=== PATIENT | female | born 1950 | race African-American/Black ===

== ENCOUNTER 2017-09-26 12:24 | Outpatient (CLI) | payer MEDICARE, MEDICAID | END 2017-09-26 12:25 | disposition home or self-care (01) | LOC: BICMAMMO 12:24 | PROVIDERS: ATTEND Nurse Practitioner Family | DX: Z12.31 Encounter for screening mammogram for malignant neoplasm of breast (principal); Z80.3 Family history of malignant neoplasm of breast | CPT/HCPCS: 77063; 77067 ==

== ENCOUNTER 2017-10-16 09:23 | Day surgery (SDC) | payer MEDICARE, MEDICAID ==
[2017-10-15 12:11] VITALS: BMI 35.6
[2017-10-16] MEDS ORDERED: Albuterol Sulfate HFA (OR ONLY) ONE (13:32)
--- NOTE | 2017-10-16 13:55 | OP ---
DATE OF PROCEDURE: 10/16/2017 PROCEDURES PERFORMED: Esophagogastroduodenoscopy with biopsy, colonoscopy with polypectomy. INDICATIONS FOR PROCEDURE: Iron deficiency anemia, screening for malignant neoplasm of the colon. DESCRIPTION OF PROCEDURE: After the risks and benefits of the procedure were explained to the patien t including risks of bleeding, infection, perforation, reactions to anesthesia, aspiration and/or jose c n, informed consent was obtained. The patient was then taken to the endoscopy suite where deep sedat ion was administered via propofol and anesthesia support. Once adequate sedation was achieved, the s tandard gastroscope was introduced into the mouth and with intubation of the esophagus, stomach and t he proximal small intestine, findings are listed below. During the procedure, the patient exhibited an acute oxygen desaturation as well as gurgling sounds concerning for possible aspiration. Subseque ntly, the procedure was placed on hold with endotracheal intubation then performed to protect the pat ient's airway. Once the patient was intubated, there were no further oxygen desaturations and upper endoscopy was then completed to satisfaction. Once the upper endoscopy was completed, the bed was th en rotated 180 degrees with starting the colonoscopy at that point. After digital rectal examination , the standard colonoscope was introduced into the rectum and advanced to the cecum without difficult y. The quality of the prep was good with adequate views obtained. The patient tolerated the procedu re well with no immediate perioperative complications. EGD FINDINGS: ESOPHAGUS: Normal appearing mucosa was seen in the proximal, mid and distal esophagus. There was no evidence of erosions, ulcerations, mass lesions or active/recent bleeding. STOMACH: Normal appearing mucosa was seen in the gastric cardia, fundus, body, greater curvature, an trum and incisura. There was no evidence of erosions, ulcerations, mass lesions or active/recent ble eding. DUODENUM: Normal appearing mucosa was seen in the duodenal bulb; however, a 4 mm pedunculated polyp was seen in the proximal duodenum/duodenal sweep without any overlying ulceration or mucosal breakdow n. Multiple biopsies were taken of this polyp given concern in its proximity to the ampulla of Vater and injury to the ampulla itself. Normal appearing mucosa was then seen in the second portion of th e duodenum with random biopsies taken from both the duodenal bulb and second portion for evaluation o f celiac disease/iron deficiency anemia. IMPRESSION: 1. A 4 mm pedunculated duodenal polyp, status post biopsies. 2. Otherwise, normal upper endoscopy. 3. No etiology for iron deficiency anemia was seen during this examination. COLONOSCOPY FINDINGS: DIGITAL RECTAL EXAM: External hemorrhoids were noted on external examination. COLON FINDINGS: Normal appearing mucosa was seen at the ileocecal valve, appendiceal orifice and wit hin the cecum itself. Three polyps measuring 2-5 mm in size were seen in the ascending colon and rem chris with a combination of both jumbo biopsy forceps and hot snare polypectomy. All the polyps were completely removed and placed in a specimen jar for evaluation. A 4 mm polyp was also seen in the tr ansverse colon and completely removed with hot snare polypectomy. The polyp was retrieved and placed in a specimen jar for evaluation. Normal appearing mucosa was seen in the distal transverse and rachell cending colons. A 4-5 mm polyp was seen in the sigmoid colon and completely removed with snare caute ry polypectomy. The polyp was retrieved and placed in a specimen jar for evaluation. Lastly, a 4-5 mm semi-pedunculated polyp was seen in the distal rectum just proximal to the dentate line and comple tely removed with hot snare polypectomy. The polyp was retrieved and placed in specimen jar for eval uation. Small internal hemorrhoids were seen on rectal retroflexion. IMPRESSION: 1. Three polyps measuring 2-5 mm in size seen in the ascending colon and completely removed with eit her jumbo forceps or snare cautery polypectomy. 2. A 4 mm polyp seen in the transverse colon completely removed with snare cautery polypectomy. 3. A 4-5 mm sigmoid colon polyp, completely removed with snare cautery polypectomy. 4. A 4-5 mm semi-pedunculated polyp seen in the rectum, status post snare cautery polypectomy. 5. Both internal and external hemorrhoids. 6. No etiology for iron deficiency anemia was seen during this examination. RECOMMENDATIONS: 1. We will follow up on the biopsy results with repeat upper endoscopy and colonoscopy based on path ology results. 2. Would hold any anticoagulation for the next 48-72 hours. 3. We will order stat chest x-ray given concern for possible aspiration during the upper endoscopy p ortion of the exam today. 4. I would further evaluate this iron deficiency anemia with iron indices and possible hematology ev aluation given the concurrent diagnosis of HIV. Capsule endoscopy is not necessarily indicated at is time given the low likelihood of small bowel etiology of the iron deficiency anemia.
--- NOTE | 2017-10-16 15:04 | RAD ---
PORTABLE CHEST: 10/16/2017 PROVIDED CLINICAL HISTORY: Status post EGD with evidence for aspiration. COMPARISON: 03/17/2014 FINDINGS: The cardiac silhouette appears enlarged. Vascular calcification involves the aortic arch. No focal consolidation, pleural fluid, or pneumothorax apparent. IMPRESSION: Cardiomegaly without evidence for an acute cardiopulmonary process. POS: TPC
== END 2017-10-16 15:41 | disposition home or self-care (01) ==
LOC: SDC 09:23
PROVIDERS: ATTEND Internal Medicine
PROC: 0DB98ZX Excision of Duodenum, Via Natural or Artificial Opening Endoscopic, Diagnostic (ICD-10-PCS; principal; 2017-10-16)
PROC: 0DBK8ZX Excision of Ascending Colon, Via Natural or Artificial Opening Endoscopic, Diagnostic (ICD-10-PCS; 2017-10-16)
PROC: 0DBL8ZX Excision of Transverse Colon, Via Natural or Artificial Opening Endoscopic, Diagnostic (ICD-10-PCS; 2017-10-16)
PROC: 0DBN8ZX Excision of Sigmoid Colon, Via Natural or Artificial Opening Endoscopic, Diagnostic (ICD-10-PCS; 2017-10-16)
PROC: 0DBP8ZX Excision of Rectum, Via Natural or Artificial Opening Endoscopic, Diagnostic (ICD-10-PCS; 2017-10-16)
PROC: 0DBK8ZX Excision of Ascending Colon, Via Natural or Artificial Opening Endoscopic, Diagnostic (ICD-10-PCS; 2017-10-16)
DX: R19.5 Other fecal abnormalities (principal); D50.9 Iron deficiency anemia, unspecified; K29.80 Duodenitis without bleeding; D12.2 Benign neoplasm of ascending colon; D12.3 Benign neoplasm of transverse colon; K62.1 Rectal polyp; K64.4 Residual hemorrhoidal skin tags; K64.8 Other hemorrhoids; I10 Essential (primary) hypertension; E78.00 Pure hypercholesterolemia, unspecified; E11.9 Type 2 diabetes mellitus without complications; Z21 Asymptomatic human immunodeficiency virus [HIV] infection status; Z79.82 Long term (current) use of aspirin; Z79.84 Long term (current) use of oral hypoglycemic drugs; Z79.899 Other long term (current) drug therapy
CPT/HCPCS: 71045; 88305; J7620

== ENCOUNTER 2017-11-04 13:31 | Outpatient (CLI) | payer MEDICARE, MEDICAID | END 2017-11-04 13:32 | disposition home or self-care (01) | LOC: BICMAMMO 13:31 | PROVIDERS: ATTEND Nurse Practitioner Family | DX: Z13.820 Encounter for screening for osteoporosis (principal); M85.89 Other specified disorders of bone density and structure, multiple sites | CPT/HCPCS: 77080 ==

== ENCOUNTER 2018-10-15 06:49 | Outpatient (CLI) | payer MEDICARE, MEDICAID ==
[2018-10-15 14:50] LABS: Hemoglobin 11.6 g/dL (12.0-16.0); Mean Corpuscular HGB CONC 32.3 g/dL (32.0-36.0); Mean Corpuscular Hemoglobin 28.4 pg (27.0-31.0); Mean Corpuscular Volume 88.1 fL (78.0-98.0); Mean Platelet Volume 8.2 fL (7.4-10.4); Platelet Count 272 thou/uL (130-400); RBC Distribution Width 13.8 % (11.5-14.5); Red Blood Cell (RBC) Count 4.07 mill/uL (4.20-5.40); White Blood Cell (WBC) Count 8.1 thou/uL (4.8-10.8)
[2018-10-15 15:15] LABS: Anion Gap 12 mmol/L (10-20); BUN (Urea Nitrogen) 16 mg/dL (9.8-20.1); Calc. Creatinine Clearance 0 mL/min (70-130); Calcium 9.8 mg/dL (7.8-10.44); Carbon Dioxide 27 mmol/L (23-31); Chloride 104 mmol/L (98-107); Estimated GFR-MDRD 46; Glucose 164 mg/dL (80-115); Sodium 139 mmol/L (136-145)
== END 2018-10-15 06:50 | disposition home or self-care (01) ==
LOC: LABBT 06:49
PROVIDERS: ATTEND Thoracic Surgery (Cardiothoracic Vascular Surgery)
DX: Z01.818 Encounter for other preprocedural examination (principal); I25.10 Atherosclerotic heart disease of native coronary artery without angina pectoris
CPT/HCPCS: 80048; 85027; 93005; 93010

== ENCOUNTER 2018-10-15 12:30 | Inpatient (IN) | payer MEDICARE, MEDICAID ==
[2018-10-15 13:23] VITALS: BMI 35.0
[2018-10-16] MEDS ORDERED: Fentanyl 250 MCG/5 ML VIAL ONE (06:12)
[2018-10-16] MEDS ORDERED: Nitroglycerin 50 MG/250 ML BOT 0 ML ONE (06:13)
[2018-10-16] MEDS ORDERED: Norepinephrine 4 MG/4 ML VIAL ONE (06:13)
[2018-10-16] MEDS ORDERED: Albumin 5% 500 ML ONE (06:32)
[2018-10-16] MEDS ORDERED: Heparin 10,000 UNITS/1 ML VIAL 30,000 UNITS in Sodium Chloride 0.9% 1,000 ML FS SCH (07:00)
[2018-10-16] MEDS ORDERED: Insulin Regular 300 UNITS/3 ML VIAL ONE (08:10)
--- NOTE | 2018-10-16 08:15 | RAD ---
2 view chest: 10/16/2018 COMPARISON: 07/15/2018 HISTORY: Preoperative patient FINDINGS: There is atherosclerotic calcification of the aortic arch. There is degenerative change wit hin the mid thoracic spine. Postoperative clips are noted in the right axilla. No pneumothorax or pleural fluid. No focal consolidation or alveolar edema. IMPRESSION: No acute findings.
[2018-10-16] MEDS ORDERED: Dexamethasone 4 mg/ml Vial ONE (10:15)
[2018-10-16] MEDS ORDERED: Bupivacaine HCl 0.5%/Epinephrine 1:200,000/PF 30 ml Vial ONE (10:15)
[2018-10-16] MEDS ORDERED: Morphine 2 MG/ML SYRINGE SLOW IVP PRN (11:19)
[2018-10-16] MEDS ORDERED: Bisacodyl 5 MG TAB PO PRN (11:19)
[2018-10-16] MEDS ORDERED: Guaifenesin DM 100-10/5 ML UDCUP PO PRN (11:19)
[2018-10-16] MEDS ORDERED: Potassium Chloride 20 MEQ/100 ML PREMIX BAG IVPB PRN (11:19)
[2018-10-16] MEDS ORDERED: Nitroglycerin 50 MG/250 ML BOT 250 ML IVPB PRN (11:19)
[2018-10-16] MEDS ORDERED: D5 1/2 NS w/20 mEq KCL 1,000 ML IV SCH (11:19)
[2018-10-16] MEDS ORDERED: Bisacodyl 10 MG SUPP PR PRN (11:19)
[2018-10-16] MEDS ORDERED: Magnesium 2 GM/50 ML 2 GM in Premix Bag 1 BAG IVPB SCH (11:19)
[2018-10-16] MEDS ORDERED: Promethazine HCl 25 MG/ML VIAL IM PRN (11:19)
[2018-10-16] MEDS ORDERED: Norepinephrine 8 MG/0.9% NS 250 ML IVPB PRN (11:19)
[2018-10-16] MEDS ORDERED: Fentanyl 100 MCG/2 ML VIAL SLOW IVP PRN ×2 (11:19)
[2018-10-16] MEDS ORDERED: Ondansetron PF 4 MG/2 ML Vial IVP PRN (11:19)
[2018-10-16] MEDS ORDERED: HYDROcodone/Acetaminophen 5/325 mg Tablet PO PRN (11:19)
[2018-10-16] MEDS ORDERED: Hetastarch 6% 500 ML 500 ML IVPB PRN (11:19)
[2018-10-16] MEDS ORDERED: Post-Op Insulin Drip Protocol IVPB ONE (11:19)
[2018-10-16] MEDS ORDERED: hydrALAZINE 20 MG/ML VIAL SLOW IVP PRN (11:19)
[2018-10-16] MEDS ORDERED: Mag-Al 1200 mg/1200 mg/30 ML UDCUP PO PRN (11:19)
[2018-10-16] MEDS ORDERED: Acetaminophen 325 MG TAB PO PRN (11:19)
--- NOTE | 2018-10-16 11:38 | RAD ---
Frontal radiograph chest: 10/16/2018 COMPARISON: 10/16/2018 History: Evaluate chest following open heart surgery FINDINGS: There is an endotracheal tube projecting over the tracheal air column, distal tip of the le lynette of the clavicular heads. Postsurgical drain overlies the mediastinum and the mid left hemithorax. Right-sided vascular catheter present, distal tip overlying the cavoatrial junction. No p neumothorax or pleural fluid. No focal consolidation or alveolar edema. Midline sternotomy wires are present. IMPRESSION: Postoperative changes as detailed above.
[2018-10-16] MEDS ORDERED: Dextrose 5% in Water 1,000 ML IV PRN (11:40)
[2018-10-16] MEDS ORDERED: Dextrose 50% Abboject 50 ML SYRINGE SLOW IVP PRN (11:40)
[2018-10-16 11:44] LABS: Actual Bicarbonate (HCO3a) 21.8 mEq/L (22-28); Base Excess (BEa) -3.2 mEq/L (-2.0 to +3.0); CO2 Tension 38.6 mmHg (35.0-45.0); Carboxyhemoglobin (COHb) 0.6 gm% (0.0-3.0); Hemoglobin (Hb) 10.1 g/dL (12.0-16.0); O2 Tension (PaO2) 105.7 mmHg (> 80.0); Potassium - ABG Lab 3.65 mmol/L (3.70-5.30); pH, Arterial 7.37 (7.35-7.45)
[2018-10-16 11:45] LABS: Puncture Site ALINE
[2018-10-16 11:46] LABS: Hemoglobin 9.7 g/dL (12.0-16.0); Mean Corpuscular HGB CONC 33.2 g/dL (32.0-36.0); Mean Corpuscular Hemoglobin 28.8 pg (27.0-31.0); Mean Corpuscular Volume 86.8 fL (78.0-98.0); Mean Platelet Volume 7.8 fL (7.4-10.4); Platelet Count 193 thou/uL (130-400); RBC Distribution Width 13.6 % (11.5-14.5); Red Blood Cell (RBC) Count 3.35 mill/uL (4.20-5.40); White Blood Cell (WBC) Count 22.6 thou/uL (4.8-10.8)
[2018-10-16 11:50] LABS: INR-International Normal Ratio 1.2; PTT 32.3 SEC (22.9-36.1); Prothrombin Time 15.3 SEC (12.0-14.7)
[2018-10-16] MEDS: Ketorolac Tromethamine 30 MG/ML VIAL IVP SCH ×3 (11:57→23:05)
[2018-10-16 12:04] LABS: Anion Gap 11 mmol/L (10-20); BUN (Urea Nitrogen) 16 mg/dL (9.8-20.1); Calc. Creatinine Clearance 73 mL/min (70-130); Calcium 8.2 mg/dL (7.8-10.44); Carbon Dioxide 23 mmol/L (23-31); Chloride 110 mmol/L (98-107); Estimated GFR-MDRD 55; Glucose 97 mg/dL (80-115); Sodium 140 mmol/L (136-145)
[2018-10-16 12:07] LABS: Band 12 % (5-11); Eosinophils 1 % (0-10); Lymphocytes 13 % (21-51); MDiff Complete? YES; Monocytes 5 % (0-10); Neutrophil 69 % (42-75); Nucleated RBC 1 % (0); RBC Morphology Normal
[2018-10-16] MEDS ORDERED: Protamine Sulfate 250 MG/25 ML VIAL ONE (12:10)
[2018-10-16] MEDS ORDERED: Thrombin 5000 UNITS/5 ML VIAL ONE (12:10)
[2018-10-16] MEDS ORDERED: Succinylcholine Chloride 20 MG/ML 10 ml SYRINGE FS ONE (12:10)
[2018-10-16] MEDS ORDERED: Ondansetron PF 4 MG/2 ML Vial ONE (12:10)
[2018-10-16] MEDS ORDERED: Mannitol 12.5 GM/50 ML ONE (12:10)
[2018-10-16] MEDS ORDERED: Sodium Bicarb 50 MEQ/50 ML VIAL ONE (12:10)
[2018-10-16] MEDS ORDERED: Calcium Chloride 1 GM/10 ML Abboject SYRINGE ONE (12:10)
[2018-10-16] MEDS ORDERED: Heparin 5,000 UNITS/ML VIAL ONE (12:10)
[2018-10-16] MEDS ORDERED: PROPOFOL 200 MG/20 ML VIAL ONE (12:10)
[2018-10-16] MEDS ORDERED: Heparin 30,000 units/30 ml VIAL ONE (12:10)
[2018-10-16] MEDS ORDERED: Papaverine 60 MG/2 ML VIAL ONE (12:10)
[2018-10-16] MEDS ORDERED: Vecuronium 10 MG VIAL ONE (12:10)
[2018-10-16] MEDS ORDERED: Lidocaine 2% PF 100 mg/5 ml Syringe ONE (12:10)
[2018-10-16] MEDS ORDERED: Cardioplegic Soln 1,000 ML BAG ONE (12:10)
[2018-10-16] MEDS ORDERED: Aminocaproic Acid 5 GM/20 ML VIAL ONE (12:10)
[2018-10-16] MEDS ORDERED: Rocuronium Bromide 10 MG/ML (10ML VIAL) ONE (12:10)
[2018-10-16] MEDS ORDERED: Magnesium 5 GM/10 ML VIAL ONE (12:10)
[2018-10-16] MEDS ORDERED: Potassium Chloride 60 MEQ/30 ML VIAL ONE (12:10)
--- NOTE | 2018-10-16 13:00 | PDOC.CPN ---
- Subjective Date: 10/16/18 Time: 13:14 Interval history: Pt. s/p 4 vessel CABG this AM. Agudelo-> LAD,SVG-> ramus,OM,PDA.Still sedated from anesthesia and intubated. - Objective Allergies/Adverse Reactions: Allergies Allergy/AdvReac Type Severity Reaction Status Date / Time No Known Allergies Allergy Verified 10/15/18 13:24 Visit Medications: Current Medications Acetaminophen (Tylenol) 650 mg PO Q6H PRN PRN Reason: Headache/Fever Or Mild Pain Hydrocodone Bitart/Acetaminophen ([place] 5/325) 1 tab PO Q4H PRN PRN Reason: Moderate Pain (4-6) Hydrocodone Bitart/Acetaminophen ([place] 5/325) 2 tab PO Q4H PRN PRN Reason: Severe Pain (7-10) Al Hydroxide/Mg Hydroxide (Maalox) 30 ml PO Q4H PRN PRN Reason: Indigestion Albumin Human (Albumin 5%) 12.5 gm IVPB Q6H PRN PRN Reason: To Maintain SBP> 90 mmHG Stop: 10/17/18 11:20 Albumin Human (Albumin 5%) 25 gm IVPB Q6H PRN PRN Reason: To Maintain SBP > 90 mmHG Stop: 10/17/18 11:20 Albuterol/Ipratropium (Duoneb) 3 ml NEB [id number] PRN PRN Reason: SHORTNESS OF BREATH Aspirin (Aspirin) 325 mg PO DAILY ROSIE Bisacodyl (Dulcolax) 10 mg PO Q12H PRN PRN Reason: Constipation Bisacodyl (Dulcolax) 10 mg W[place] Q12H PRN PRN Reason: Constipation Dextrose/Water (Dextrose 50%) 25 gm SLOW IVP PRN PRN PRN Reason: PER HYPOGLYCEMIC PROTOCOL Famotidine (Pepcid) 20 mg SLOW IVP Q12HR ROSIE Fentanyl (Sublimaze) 25 mcg SLOW IVP Q2H PRN PRN Reason: Moderate Pain (4-6) Stop: 10/18/18 10:58 Fentanyl (Sublimaze) 50 mcg SLOW IVP Q2H PRN PRN Reason: Severe Pain (7-10) Stop: 10/18/18 10:58 Glucagon (Glucagon) 1 mg SC PRN PRN PRN Reason: PER HYPOGLYCEMIC PROTOCOL Guaifenesin/Dextromethorphan (Robitussin Dm) 15 ml PO Q4H PRN PRN Reason: Cough Hydralazine HCl (Apresoline) 10 mg SLOW IVP Q6H PRN PRN Reason: To Maintain SBP< 140mmHG Cefazolin Sodium/Dextrose 2 gm (/ Device) 50 mls @ 100 mls/hr IVPB Q8HR [facility] Stop: 10/17/18 06:29 Potassium Chloride/Dextrose/Sod Cl (D5 1/2 Ns W/20 Meq Kcl) 1,000 mls @ 40 mls/ hr IV .Q24H [facility] Last Admin: 10/16/18 11:56 Dose: 1,000 mls Hetastarch/Sodium Chloride (Hespan) 500 mls @ 0 mls/hr IVPB PRN PRN PRN Reason: To Maintain SBP > 90mmHg Stop: 10/17/18 10:58 Norepinephrine Bitartrate (Levophed) 250 mls @ 0 mls/hr IVPB PRN PRN; Protocol PRN Reason: To maintain SBP > 90 mmHG Magnesium Sulfate 2 gm/ Device 50 mls @ 50 mls/hr IVPB NOW [facility] Stop: 10/16/18 16:00 Last Admin: 10/16/18 12:09 Dose: 50 mls Magnesium Sulfate 2 gm/ Device 50 mls @ 50 mls/hr IVPB QAM [facility] Stop: 10/18/18 09:59 Nitroglycerin/Dextrose (Nitroglycerin 50 Mg/250 Ml Bot) 250 mls @ 0 mls/hr IVPB PRN PRN; Protocol PRN Reason: To Maintain SBP< 140mmHG Insulin Human Regular 100 (units/ Sodium Chloride) 101 mls @ 0 mls/hr IVPB INF ROSIE; Protocol Dextrose/Water (D5w) 1,000 mls @ 0 mls/hr IV INF PRN PRN Reason: PRN HYPOGLYCEMIC PROTOCOL Insulin Glargine (Lantus) 0 units SC ONE PRN PRN Reason: POST OPEN HEART ORDERS Stop: 10/17/18 17:00 Insulin Human Regular (Humulin R) 0 units SC Q4H PRN; Protocol PRN Reason: POST CABG SLIDING SCALE Ketorolac Tromethamine (Toradol) 30 mg IVP Q6HR [facility] Stop: 10/19/18 12:01 Last Admin: 10/16/18 11:57 Dose: 30 mg Morphine Sulfate (Morphine) 2 mg SLOW IVP Q15MIN PRN PRN Reason: Severe Pain (7-10) Ondansetron HCl (Zofran) 4 mg IVP Q6H PRN PRN Reason: Nausea/Vomiting Potassium Chloride (Kcl) 20 meq IVPB PRN PRN PRN Reason: K level </= 4.0 Last Admin: 10/16/18 12:34 Dose: 20 meq Promethazine HCl (Phenergan) 6.25 mg IM Q4H PRN PRN Reason: Nausea/Vomiting Sodium Chloride (Flush - Normal Saline) 10 ml IVF PRN PRN PRN Reason: Saline Flush Vital Signs & Weight: Vital Signs Pulse Resp BP 10/16/18 12:00 12 10/16/18 11:24 54 L 83/30 L Weight 217 lb - Quality Measures Condition: Coronary Artery Disease CV meds: Beta Adan: Yes (held at this time,NPO and bradycardia.), LUCIAN/ARB: Yes (resume when taking po), Statin: Yes ( "), ASA: Yes ( ") - Physical Exam General: other (sedated post-op) Neck: supple neck Cardiac: regular rate and rhythm, no murmur, bradycardia Lungs: clear to auscultation Neuro: other (sedated) Abdomen: unremarkable - Labs Result Diagrams: 10/16/18 11:28 10/16/18 11:28 - EKG Interpretation EKG shows: bradycardia - Problem (1) CAD (coronary artery disease) Code(s): I25.10 - ATHSCL HEART DISEASE OF [place] CORONARY ARTERY W/O ANG PCTRS - Assessment/Plan Assessment/Plan: 1. CAD: s/p CABG earlier today. 2. HTN: stable. 3. DM. Continue insulin as needed. 4. Dyslipidemia. Resume meds when taking PO 5. HIV positive. Resume meds when appropriate 6. Bradycardia; observe and hold beta blockers for now.
[2018-10-16] MEDS: CEFAZOLIN 2 GM in Premix Bag 1 BAG IVPB SCH ×2 (13:45→21:26)
[2018-10-16] MEDS: HUMULIN R 100 UNITS in Sodium Chloride 0.9% 100 ML IVPB SCH (17:07)
--- NOTE | 2018-10-16 17:09 | OP ---
DATE OF PROCEDURE: 10/16/2018 PREOPERATIVE DIAGNOSIS: Coronary artery disease/diabetes mellitus/obesity/hypertension/dyslipidemia. POSTOPERATIVE DIAGNOSIS: Coronary artery disease/diabetes mellitus/obesity/hypertension/dyslipidemia. PROCEDURES PERFORMED: Coronary artery bypass grafting x4 - 1. Left internal mammary artery to 1.5 mm distal LAD - good conduit small target. 2. Reverse saphenous vein to 2.0 mm ramus - good conduit and target. 3. Reverse saphenous vein to 1.5 mm OM - good conduit, small target. 4. Reverse saphenous vein to 1.5 mm diffusely diseased PDA - good conduit, small target. INSEAMER SURGEON: Dr. Jayden Mcclendon. ANESTHESIA: General endotracheal, Dr. Manuel Nye. PUMP TIME: 59 minutes. CROSS-CLAMP TIME: 32 minutes. LOW CORE TEMPERATURE: 34 degrees Celsius. BREEDING TECHNICIAN: Diana Tee. DRAINS: 24-Kaz[place] chest tubes x2. DRIPS: Levophed. TRANSFUSIONS: One unit packed red blood cells on pump for anemia. DESCRIPTION OF PROCEDURE: After consent was obtained, the patient was brought to the operating room, placed in supine position on the operating room table. Appropriate central line and monitors were placed and general endotracheal anesthesia was induced. Chest, abdomen, and legs were prepped and draped in usual sterile fashion. Greater saphenous vein was harvested from the left lower extremity utilizing an endoscopic technique. Wounds were irrigated and closed in layers. A median sternotomy was performed. Left internal mammary artery was harvested as a pedicle graft. The patient was systemically heparinized. The distal pedicle was infused with papaverine. Thymic fat and pericardium were divided with electrocautery. Pericardial stay sutures were placed. Aortic and atrial cannulation was performed. After adequate heparinization, the patient was placed on cardiopulmonary bypass. Distal targets were marked. The aortic cross-clamp was applied and antegrade sanguinous cardioplegic arrest was obtained. 1 L of antegrade cold [place] cardioplegia was given. Topical cold solution was used. Reverse saphenous vein was anastomosed to the PDA in an end-to-side fashion with running 7-0 prolene suture. Anastomosis was tested and it was hemostatic. Reverse saphenous vein was anastomosed to the OM in an end-to-side fashion with running 7-0 Prolene suture. Anastomosis was tested and it was hemostatic. Reverse saphenous vein was anastomosed to the ramus just distal to the branch point. Anastomosis was tested and it was hemostatic. The mammary artery was brought through a window in the pericardium and anastomosed to the mid LAD in an end-to-side fashion with running 7-0 Prolene suture. The cross-clamp was removed and partial occluding clamp placed. The saphenous veins to the PDA and OM were anastomosed to individual punch sites in the aorta. Saphenous vein to the ramus was anastomosed to the sidewall of the OM graft. Partial occluding clamp was removed and graft was deaired. Anastomoses were inspected for hemostasis, which was good. A single stitch was placed in the toe of the OM graft for hemostasis. After resumption of sinus rhythm, good hemodynamics, temperature greater than 36.5, bypass was discontinued. Transfusion was given. Protamine was administered. Decannulation was performed with pursestring suture. Hemostasis was ensured within the mediastinum. 24-Kazakh chest tubes x2 were placed in the mediastinum. Sternum was treated with vancomycin paste. After adequate hemostasis had been obtained, sternum was closed with #7 wire. The wires were twisted and buried after treating the sternum with platelet rich plasma. Wounds were irrigated and treated with platelet poor plasma and closed in multiple layers. Needle, sponge, and instrument counts were all reported as correct at the end of the procedure. The patient tolerated the procedure well and was transferred to the intensive care unit in stable, but critical condition. Job ID: [id number]
[2018-10-16 17:13] LABS: Hemoglobin 11.5 g/dL (12.0-16.0)
[2018-10-16 17:27] LABS: Potassium 4.4 mmol/L (3.5-5.1)
[2018-10-16 19:11] LABS: Actual Bicarbonate (HCO3a) 21.9 mEq/L (22-28); Base Excess (BEa) -4.2 mEq/L (-2.0 to +3.0); Calcium, Ionized 1.15 mmol/L (1.12-1.30); Carboxyhemoglobin (COHb) 1.4 gm% (0.0-3.0); O2 Tension (PaO2) 88.2 mmHg (> 80.0); Potassium - ABG Lab 3.88 mmol/L (3.70-5.30); pH, Arterial 7.31 (7.35-7.45)
[2018-10-16] MEDS ORDERED: Famotidine/PF 20 mg/2ml Vial SLOW IVP SCH (21:00)
[2018-10-16 22:02] LABS: Puncture Site LINE
[2018-10-17 04:33] LABS: #Lymphocytes 1.2 thou/uL (1.20-3.40); #Monocytes 1.4 thou/uL (0.11-0.59); #Neutrophils 16.6 thou/uL (1.40-6.50); %Basophils 0.1 % (0.0-1.0); %Eosinophils 0.1 % (0.0-10.0); %Lymphocytes 6.3 % (21.0-51.0); %Monocytes 7.1 % (0.0-10.0); %Neutrophils 86.5 % (42.0-75.0); Hemoglobin 10.4 g/dL (12.0-16.0); Mean Corpuscular HGB CONC 32.6 g/dL (32.0-36.0); Mean Corpuscular Hemoglobin 29.1 pg (27.0-31.0); Mean Corpuscular Volume 89.2 fL (78.0-98.0); Mean Platelet Volume 8.3 fL (7.4-10.4); Platelet Count 185 thou/uL (130-400); RBC Distribution Width 13.9 % (11.5-14.5); Red Blood Cell (RBC) Count 3.59 mill/uL (4.20-5.40); White Blood Cell (WBC) Count 19.2 thou/uL (4.8-10.8)
[2018-10-17 04:52] LABS: Anion Gap 11 mmol/L (10-20); BUN (Urea Nitrogen) 21 mg/dL (9.8-20.1); Calc. Creatinine Clearance 55 mL/min (70-130); Calcium 8.5 mg/dL (7.8-10.44); Carbon Dioxide 23 mmol/L (23-31); Chloride 108 mmol/L (98-107); Estimated GFR-MDRD 40; Glucose 145 mg/dL (80-115); Potassium 4.1 mmol/L (3.5-5.1); Sodium 138 mmol/L (136-145)
[2018-10-17] MEDS: Ketorolac Tromethamine 30 MG/ML VIAL IVP SCH ×3 (05:09→18:19)
[2018-10-17] MEDS: CEFAZOLIN 2 GM in Premix Bag 1 BAG IVPB SCH (05:09)
[2018-10-17] MEDS: HUMULIN R 100 UNITS in Sodium Chloride 0.9% 100 ML IVPB SCH (05:43)
[2018-10-17] MEDS: Ipratropium Bromide 2.5 ml Neb NEB SCH ×4 (07:28→23:00)
--- NOTE | 2018-10-17 07:57 | RAD ---
Chest AP view INDICATION: Postop open heart COMPARISON: October 16, 2018 FINDINGS: Lungs:The lungs are clear Cardiac silhouette:There is stable mild cardiomegaly Pulmonary vasculature:Normal Pleural spaces:No pleural effusion or pneumothorax is demonstrated. Upper abdomen:No abnormality seen. Osseous structures: No acute osseous abnormality. Additional findings:The patient has been intervally extubated. The right subclavian central venous ca theter, midline mediastinal drain and left-sided thoracostomy tube are unchanged in position. IMPRESSION: Interval extubation. Stable mild cardiomegaly. No pneumothorax. Tubes and lines as above.
[2018-10-17] MEDS: Magnesium 2 GM/50 ML 2 GM in Premix Bag 1 BAG IVPB SCH (08:35)
[2018-10-17] MEDS: Aspirin 325 MG TAB PO SCH (08:35)
--- NOTE | 2018-10-17 09:04 | PDOC.CPN ---
- Subjective Date: 10/17/18 Time: 09:03 Interval history: The pt seen and examined. No overnight events. No cardiac complaints. - Review of Systems Musculoskeletal: reports: stiffness Neurological: reports: weakness - Objective Allergies/Adverse Reactions: Allergies Allergy/AdvReac Type Severity Reaction Status Date / Time No Known Allergies Allergy Verified 10/15/18 13:24 Visit Medications: Current Medications Acetaminophen (Tylenol) 650 mg PO Q6H PRN PRN Reason: Headache/Fever Or Mild Pain Hydrocodone Bitart/Acetaminophen ([place] 5/325) 1 tab PO Q4H PRN PRN Reason: Moderate Pain (4-6) Hydrocodone Bitart/Acetaminophen ([place] 5/325) 2 tab PO Q4H PRN PRN Reason: Severe Pain (7-10) Al Hydroxide/Mg Hydroxide (Maalox) 30 ml PO Q4H PRN PRN Reason: Indigestion Albumin Human (Albumin 5%) 12.5 gm IVPB Q6H PRN PRN Reason: To Maintain SBP> 90 mmHG Stop: 10/17/18 11:20 Last Admin: 10/17/18 01:05 Dose: 12.5 gm Albumin Human (Albumin 5%) 25 gm IVPB Q6H PRN PRN Reason: To Maintain SBP > 90 mmHG Stop: 10/17/18 11:20 Albuterol/Ipratropium (Duoneb) 3 ml NEB [id number] PRN PRN Reason: SHORTNESS OF BREATH Aspirin (Aspirin) 325 mg PO DAILY ROSIE Last Admin: 10/17/18 08:35 Dose: 325 mg Bisacodyl (Dulcolax) 10 mg PO Q12H PRN PRN Reason: Constipation Bisacodyl (Dulcolax) 10 mg GA Q12H PRN PRN Reason: Constipation Dextrose/Water (Dextrose 50%) 25 gm SLOW IVP PRN PRN PRN Reason: PER HYPOGLYCEMIC PROTOCOL Fentanyl (Sublimaze) 25 mcg SLOW IVP Q2H PRN PRN Reason: Moderate Pain (4-6) Stop: 10/18/18 10:58 Last Admin: 10/16/18 21:41 Dose: 25 mcg Fentanyl (Sublimaze) 50 mcg SLOW IVP Q2H PRN PRN Reason: Severe Pain (7-10) Stop: 10/18/18 10:58 Glucagon (Glucagon) 1 mg SC PRN PRN PRN Reason: PER HYPOGLYCEMIC PROTOCOL Guaifenesin/Dextromethorphan (Robitussin Dm) 15 ml PO Q4H PRN PRN Reason: Cough Hydralazine HCl (Apresoline) 10 mg SLOW IVP Q6H PRN PRN Reason: To Maintain SBP< 140mmHG Hetastarch/Sodium Chloride (Hespan) 500 mls @ 0 mls/hr IVPB PRN PRN PRN Reason: To Maintain SBP > 90mmHg Stop: 10/17/18 10:58 Magnesium Sulfate 2 gm/ Device 50 mls @ 50 mls/hr IVPB QAM [facility] Stop: 10/18/18 09:59 Last Admin: 10/17/18 08:35 Dose: 50 mls Insulin Human Regular 100 (units/ Sodium Chloride) 101 mls @ 0 mls/hr IVPB INF [facility]; Protocol Last Admin: 10/17/18 05:43 Dose: 101 mls Dextrose/Water (D5w) 1,000 mls @ 0 mls/hr IV INF PRN PRN Reason: PRN HYPOGLYCEMIC PROTOCOL Insulin Glargine (Lantus) 0 units SC ONE PRN PRN Reason: POST OPEN HEART ORDERS Stop: 10/17/18 17:00 Insulin Human Regular (Humulin R) 0 units SC Q4H PRN; Protocol PRN Reason: POST CABG SLIDING SCALE Ipratropium [place] (Atrovent) 2.5 ml NEB [id number] [facility] Last Admin: 10/17/18 07:28 Dose: 2.5 ml Ketorolac Tromethamine (Toradol) 30 mg IVP Q6HR [facility] Stop: 10/19/18 12:01 Last Admin: 10/17/18 05:09 Dose: 30 mg Morphine Sulfate (Morphine) 2 mg SLOW IVP Q15MIN PRN PRN Reason: Severe Pain (7-10) Ondansetron HCl (Zofran) 4 mg IVP Q6H PRN PRN Reason: Nausea/Vomiting Pantoprazole Sodium (Protonix) 40 mg PO DAILY [facility] Last Admin: 10/17/18 08:35 Dose: 40 mg Potassium Chloride (Kcl) 20 meq IVPB PRN PRN PRN Reason: K level </= 4.0 Last Admin: 10/16/18 12:34 Dose: 20 meq Promethazine HCl (Phenergan) 6.25 mg IM Q4H PRN PRN Reason: Nausea/Vomiting Rosuvastatin Calcium (Crestor) 40 mg PO HS ROSIE Sodium Chloride (Flush - Normal Saline) 10 ml IVF PRN PRN PRN Reason: Saline Flush Vital Signs & Weight: Vital Signs Temp Pulse Resp Pulse Ox 10/17/18 07:30 99 10/17/18 07:28 66 15 99 10/17/18 04:00 97.9 F 10/17/18 00:00 97.9 F Weight 212 lb 4.882 oz - Quality Measures Condition: Coronary Artery Disease CV meds: Beta Adan: Yes (held at this time,NPO and bradycardia.), LUCIAN/ARB: Yes (resume when taking po), Statin: Yes ( "), ASA: Yes ( ") - Physical Exam General: alert & oriented x3 Neck: no JVD/HJR Cardiac: regular rate and rhythm, S1/S2 Lungs: clear to auscultation, decreased breath sounds Neuro: cranial nerve 2-12 intact Musculoskeletal: decreased range of motion - Labs Result Diagrams: 10/17/18 04:10 10/17/18 04:10 - Telemetry Sinus rhythms and dysrhythmias: sinus rhythm - Assessment/Plan Assessment/Plan: 1. CAD: S/p CABG x4 on 10/16/2018 with CALIX-LAD, RSVG-ramus, RSVG-OM, and RSVG- PDA; On ASA 325mg qd and Crestor; will start BBlocker/LUCIAN when her VS is stable 2. HTN: stable. 3. DM. Continue insulin as needed. 4. Dyslipidemia. On Crestor 5. HIV positive. Resume meds when appropriate 6. Bradycardia - stable without bblocker; 7. CHF - stable MAR reviewed
[2018-10-17] MEDS ORDERED: Insulin Glargine 6 UNITS in Pre-Filled Syringe 1 EACH SC SCH (14:00)
[2018-10-17 15:19] LABS: Actual Bicarbonate (HCO3a) 22.5 mEq/L (22-28); Analyzer IN Cardio OR; Base Excess (BEa) -1.3 mEq/L (-2.0 to +3.0); Calcium, Ionized 1.12 mmol/L (1.12-1.30); Carboxyhemoglobin (COHb) 0.2 gm% (0.0-3.0); Hemoglobin (Hb) 8.4 g/dL (12.0-16.0); O2 Tension (PaO2) 375.7 mmHg (> 80.0); Potassium - ABG Lab 3.63 mmol/L (3.70-5.30); pH, Arterial 7.44 (7.35-7.45)
[2018-10-17 15:19] LABS: Actual Bicarbonate (HCO3a) 22.8 mEq/L (22-28); Analyzer IN Cardio OR; Base Excess (BEa) -0.6 mEq/L (-2.0 to +3.0); Calcium, Ionized 1.13 mmol/L (1.12-1.30); Carboxyhemoglobin (COHb) 0.6 gm% (0.0-3.0); O2 Tension (PaO2) 360.1 mmHg (> 80.0); Potassium - ABG Lab 4.21 mmol/L (3.70-5.30); pH, Arterial 7.46 (7.35-7.45)
[2018-10-17 15:20] LABS: Actual Bicarbonate (HCO3a) 22.4 mEq/L (22-28); Analyzer IN Cardio OR; Base Excess (BEa) -1.6 mEq/L (-2.0 to +3.0); CO2 Tension 35.3 mmHg (35.0-45.0); Calcium, Ionized 1.11 mmol/L (1.12-1.30); Carboxyhemoglobin (COHb) 0.2 gm% (0.0-3.0); Hemoglobin (Hb) 10.2 g/dL (12.0-16.0); O2 Tension (PaO2) 391.8 mmHg (> 80.0); Potassium - ABG Lab 3.53 mmol/L (3.70-5.30); pH, Arterial 7.42 (7.35-7.45)
[2018-10-17 15:20] LABS: Actual Bicarbonate (HCO3a) 20.9 mEq/L (22-28); Analyzer IN Cardio OR; Base Excess (BEa) -3.4 mEq/L (-2.0 to +3.0); Calcium, Ionized 1.02 mmol/L (1.12-1.30); Carboxyhemoglobin (COHb) 0.9 gm% (0.0-3.0); Hemoglobin (Hb) 8.1 g/dL (12.0-16.0); O2 Tension (PaO2) 394.3 mmHg (> 80.0); Potassium - ABG Lab 3.59 mmol/L (3.70-5.30); pH, Arterial 7.41 (7.35-7.45)
[2018-10-17 15:20] LABS: Actual Bicarbonate (HCO3v) 27 mEq/L (22-28); Analyzer IN Cardio OR; Calcium, Ionized 1.01 mmol/L (1.16-1.32); Chloride (ABG LAB) 107 mmol/L (98-106); Hemoglobin (Hb) 7.1 g/dL (11.7-16.1); Potassium - ABG Lab 3.66 mmol/L (3.70-5.30); Sodium 140.8 mmol/L (133-146); pH (venous) 7.36 (7.32-7.43)
[2018-10-17 15:21] LABS: Actual Bicarbonate (HCO3a) 19.5 mEq/L (22-28); Analyzer IN Cardio OR; Base Excess (BEa) -3.7 mEq/L (-2.0 to +3.0); CO2 Tension 29.1 mmHg (35.0-45.0); Calcium, Ionized 1.11 mmol/L (1.12-1.30); Carboxyhemoglobin (COHb) 0.3 gm% (0.0-3.0); O2 Tension (PaO2) 276.4 mmHg (> 80.0); Potassium - ABG Lab 3.94 mmol/L (3.70-5.30); pH, Arterial 7.45 (7.35-7.45)
[2018-10-17 15:21] LABS: Actual Bicarbonate (HCO3a) 24.8 mEq/L (22-28); Analyzer IN Cardio OR; Base Excess (BEa) -0.9 mEq/L (-2.0 to +3.0); CO2 Tension 46.2 mmHg (35.0-45.0); Calcium, Ionized 1.04 mmol/L (1.12-1.30); Carboxyhemoglobin (COHb) 0.6 gm% (0.0-3.0); Hemoglobin (Hb) 7.9 g/dL (12.0-16.0); O2 Tension (PaO2) 445.1 mmHg (> 80.0); Potassium - ABG Lab 3.99 mmol/L (3.70-5.30); pH, Arterial 7.35 (7.35-7.45)
[2018-10-17 15:21] LABS: Puncture Site ALINE
[2018-10-17 15:22] LABS: Puncture Site ALINE
[2018-10-17 15:22] LABS: Puncture Site ALINE
[2018-10-17 15:23] LABS: Puncture Site ALINE
[2018-10-17 15:23] LABS: Puncture Site ALINE
[2018-10-17 15:24] LABS: Puncture Site ALINE
[2018-10-17] MEDS ORDERED: Bisacodyl 5 MG TAB PO PRN (19:59)
[2018-10-17] MEDS ORDERED: Guaifenesin DM 100-10/5 ML UDCUP PO PRN (19:59)
[2018-10-17] MEDS ORDERED: Mineral Oil ENEMA PR PRN (19:59)
[2018-10-17] MEDS ORDERED: diphenhydrAMINE 25 MG CAP PO PRN (19:59)
[2018-10-17] MEDS ORDERED: Zolpidem Tartrate 5 MG TAB PO PRN (19:59)
[2018-10-17] MEDS ORDERED: Mag-Al 1200 mg/1200 mg/30 ML UDCUP PO PRN (19:59)
[2018-10-17] MEDS ORDERED: Artificial Tears 18 DROP/0.9 ML EA EYE PRN (19:59)
[2018-10-17] MEDS ORDERED: Bisacodyl 10 MG SUPP PR PRN (19:59)
[2018-10-17] MEDS ORDERED: Nitroglycerin 0.4 MG TAB (25 Tab Bottle) SL PRN (19:59)
[2018-10-17] MEDS: Carvedilol 6.25 MG TAB PO SCH (21:03)
[2018-10-17] MEDS: Rosuvastatin 20 MG TAB PO SCH (21:04)
[2018-10-17] MEDS: Insulin Regular 300 UNITS/3 ML VIAL SC PRN (21:14)
[2018-10-18] MEDS: Ketorolac Tromethamine 30 MG/ML VIAL IVP SCH ×4 (00:41→18:03)
[2018-10-18] MEDS: Ipratropium Bromide 2.5 ml Neb NEB SCH ×3 (06:45→19:39)
[2018-10-18] MEDS: metFORMIN 500 MG TAB PO SCH ×2 (08:59→18:07)
[2018-10-18] MEDS: Aspirin 325 MG TAB PO SCH (08:59)
[2018-10-18] MEDS: Carvedilol 6.25 MG TAB PO SCH ×2 (08:59→22:31)
[2018-10-18] MEDS: Aspirin 325 mg Enteric Coated Tablet PO SCH (09:00)
[2018-10-18] MEDS: Magnesium 2 GM/50 ML 2 GM in Premix Bag 1 BAG IVPB SCH (09:00)
[2018-10-18] MEDS: HYDROcodone/Acetaminophen 5/325 mg Tablet PO PRN ×2 (09:01→22:39)
[2018-10-18] MEDS: Insulin Regular 300 UNITS/3 ML VIAL SC PRN ×3 (14:09→22:52)
[2018-10-18] MEDS ORDERED: TIVICAY PO SCH (15:00)
[2018-10-18] MEDS ORDERED: PREZCOBIX PO SCH (15:00)
[2018-10-18] MEDS: hydrALAZINE 25 MG TAB PO SCH (22:31)
[2018-10-18] MEDS: Rosuvastatin 20 MG TAB PO SCH (22:31)
[2018-10-19] MEDS: Ketorolac Tromethamine 30 MG/ML VIAL IVP SCH ×3 (00:31→11:58)
[2018-10-19] MEDS: Ipratropium Bromide 2.5 ml Neb NEB SCH ×2 (00:32→07:31)
[2018-10-19] MEDS: Insulin Regular 300 UNITS/3 ML VIAL SC PRN ×2 (01:16→11:52)
[2018-10-19] MEDS ORDERED: PREZCOBIX PO SCH (08:00)
[2018-10-19] MEDS: hydrALAZINE 25 MG TAB PO SCH ×2 (08:03→15:41)
[2018-10-19] MEDS: metFORMIN 500 MG TAB PO SCH (08:03)
[2018-10-19] MEDS: Carvedilol 6.25 MG TAB PO SCH (08:45)
[2018-10-19] MEDS: Aspirin 325 mg Enteric Coated Tablet PO SCH (08:46)
[2018-10-19] MEDS: Aspirin 325 MG TAB PO SCH (08:46)
[2018-10-19] MEDS ORDERED: TIVICAY PO SCH (09:00)
--- NOTE | 2018-10-19 12:02 | DIS ---
DATE OF ADMISSION: 10/16/2018 DATE OF DISCHARGE: 10/19/2018 PRINCIPAL DIAGNOSIS: Coronary artery disease. PROCEDURES PERFORMED: Coronary artery bypass grafting x4 with left internal mammary artery to the distal left anterior descending artery and reverse greater saphenous vein graft from aorta to the ramus intermedius, from the aorta to the obtuse marginal, from the aorta to the posterior descending artery on 10/16/2018. HISTORY OF PRESENT ILLNESS AND HOSPITAL COURSE: The patient is a 68-year-old diabetic woman with hypertension, on antiviral therapy for HIV infection. She developed chest pain and shortness of breath with minimal activity. A stress test was abnormal and cardiac catheterization demonstrated significant coronary artery disease with preserved left ventricular function. She was admitted for elective revascularization and did very well. She was extubated and up in a chair by postoperative day 1 and her tubes were removed later that day. She tolerated reinstitution of her home dose of Coreg. Her hydralazine was dropped from her home dose of 100 mg t.i.d. to 25 mg t.i.d. and her verapamil was held. Pradaxa that she had been on for history of atrial fibrillation is still being held because she has remained in a sinus rhythm throughout this hospitalization. She is being discharged home today on postoperative day 3, doing quite well. Job ID: [id number]
[2018-10-19 13:05] VITALS: TEMP 98
[2018-10-19 15:41] VITALS: BP 157/74
--- NOTE | 2018-10-21 03:47 | PQF ---
MARK TOMPKINS GEORG [id number] CLINICAL DOCUMENTATION CLARIFICATION FORM: POST DISCHARGE Addendum to original discharge summary date: ____ Late entry note date: __ DATE: 10-27-2018 ATTN: Dr. Cruz Hitchcock , Please exercise your independent, professional judgment in responding to the clarification form. Clinical indicators are provided on the bottom of this form for your review Please check appropriate box(s): [ ] Acute blood loss anemia [ ] Post-op anemia related to acute blood loss [ ] Anemia Unspecified [ ] Other diagnosis please specify [ ] Unable to determine In addition, please specify: Present on Admission (POA): [ ] Yes [ ] No [ ] Unable to determine For continuity of documentation, please document condition throughout progress notes and discharge summary. Thank You. CLINICAL INDICATORS: Op note 10/[address] Hitchcock one unit packed red blood cells on pump for anemia Op note 10/[address] Hitchcock The wires were twisted and buried after treating the sternum with platelet rich plasma DS 10/[address] Briceno She was admitted for elective revascularization and did very well. Laboratory: Hgb= 9.7 (10/16), 11.5 (10/16), 10.4 (10/17) hct= 29.1 (10/16), 35.7 (), 32.1 (10/17) RISK FACTORS: HP Dr. Hitchcock CAD HP Dr. Hitchcock- HTN HP Dr. Hitchcock- Dyslipidemia Op note Dr. Hitchcock- Anemia Op note Dr. Hitchcock-Coronary artery bypass grafting X4 Op note Dr. Hitchcock- Obestity TREATMENTS: Op note Dr. Hitchcokc 10/16- 1 Unit packed RBC on pump MAR 10/16- IV fluids (This form is maintained as a part of the permanent medical record) 2014 [employer]. All Rights Reserved [email or web address] [not provided] [email or web address]
== END 2018-10-19 17:20 | disposition home or self-care (01) | DRG 236 ==
LOC: SURG A 10-16 05:43 → CCU 10-16 11:21 → 2NO 10-17 21:42
PROVIDERS: ADMIT Thoracic Surgery (Cardiothoracic Vascular Surgery); ATTEND Thoracic Surgery (Cardiothoracic Vascular Surgery)
PROC: 02100Z9 Bypass Coronary Artery, One Artery from Left Internal Mammary, Open Approach (ICD-10-PCS; principal; 2018-10-16)
PROC: 021209W Bypass Coronary Artery, Three Arteries from Aorta with Autologous Venous Tissue, Open Approach (ICD-10-PCS; 2018-10-16)
PROC: 06BQ4ZZ Excision of Left Saphenous Vein, Percutaneous Endoscopic Approach (ICD-10-PCS; 2018-10-16)
PROC: 5A1221Z Performance of Cardiac Output, Continuous (ICD-10-PCS; 2018-10-16)
PROC: 30233N1 Transfusion of Nonautologous Red Blood Cells into Peripheral Vein, Percutaneous Approach (ICD-10-PCS; 2018-10-16)
DX: I25.10 Atherosclerotic heart disease of native coronary artery without angina pectoris (principal); E78.5 Hyperlipidemia, unspecified; E11.9 Type 2 diabetes mellitus without complications; I48.0 Paroxysmal atrial fibrillation; E66.9 Obesity, unspecified; Z21 Asymptomatic human immunodeficiency virus [HIV] infection status; I11.0 Hypertensive heart disease with heart failure; I50.9 Heart failure, unspecified; J45.909 Unspecified asthma, uncomplicated; E78.2 Mixed hyperlipidemia; R00.1 Bradycardia, unspecified; Z79.82 Long term (current) use of aspirin; Z68.37 Body mass index [BMI] 37.0-37.9, adult; Z79.899 Other long term (current) drug therapy; Z79.84 Long term (current) use of oral hypoglycemic drugs; Z87.891 Personal history of nicotine dependence
CPT/HCPCS: 36416; 36430; 71045; 71046; 80048; 82805; 85025; 85027; 85610; 85730; 86850; 86900; 86901; 93005; 93010; 93798; 94002; 94150; 94640; J0670; J0690; J1100; J1642; J1644; J1815; J1885; J2001; J2150; J2405; J2440; J2550; J2704; J2720; J3010; J3370; J3475; J3480; J3490; J7050; P9016; P9045; Q0163; S0017; S0028

== ENCOUNTER 2024-10-22 21:09 | Observation (INO) | payer OTHER, MEDICAID ==
[2024-10-22 22:35] VITALS: BMI 35.4
[2024-10-22] MEDS ORDERED: Acetaminophen 325 MG TAB PO PRN (23:28)
[2024-10-22] MEDS ORDERED: Calcium Carbonate 500 MG ChewTAB PO PRN (23:28)
[2024-10-22] MEDS ORDERED: Ondansetron PF 4 MG/2 ML Vial IVP PRN (23:28)
[2024-10-23] MEDS ORDERED: Glucagon 1 MG/ML KIT IM PRN (03:29)
[2024-10-23] MEDS ORDERED: Dextrose 50% Abboject 50 ML SYRINGE SLOW IVP PRN (03:29)
[2024-10-23 05:13] LABS: #Basophils Less than 0.03 10x3/uL (0.0-0.2); #Eosinophils 0.06 10x3/uL (0.0-0.7); #Monocytes 1.00 10x3/uL (0.11-0.59); #Neutrophils 5.52 10x3/uL (1.40-6.50); %Basophils 0.2 % (0.0-1.0); %Eosinophils 0.6 % (0.0-10.0); %Lymphocytes 29.5 % (21.0-51.0); %Monocytes 10.6 % (0.0-10.0); %Neutrophils 58.9 % (42.0-75.0); Hematocrit 35.7 % (36.0-47.0); Hemoglobin 11.0 g/dL (12.0-16.0); Mean Corpuscular Hemoglobin 29.9 pg (27.0-31.0); Mean Corpuscular Volume 97.0 fL (78.0-98.0); Platelet Count 175 10x3/uL (130-400); Red Blood Cell (RBC) Count 3.68 mill/uL (4.20-5.40); White Blood Cell (WBC) Count 9.39 10x3/uL (4.8-10.8)
[2024-10-23 05:35] LABS: ALT (SGPT) 11 U/L (Less than 34); AST (SGOT) 18 U/L (11-34); Albumin 2.9 g/dL (3.1-4.5); Alkaline Phosphatase 56 U/L (40-110); Anion Gap 10 mmol/L (10-20); BUN (Urea Nitrogen) 26 mg/dL (9.8-20.1); Bilirubin, Total 0.3 mg/dL (0.3-1.2); Calc. Creatinine Clearance 50 mL/min (70-130); Calcium 8.7 mg/dL (7.8-10.44); Carbon Dioxide 28 mmol/L (23-31); Chloride 105 mmol/L (98-107); Globulin 2.9 g/dL (2.4-3.5); Glucose 168 mg/dL (83-110); Potassium 4.1 mmol/L (3.5-5.1); Sodium 139 mmol/L (136-145)
[2024-10-23] MEDS: Aspirin 81 mg Enteric Coated Tablet PO SCH (10:10)
[2024-10-23] MEDS: Lisinopril 20 MG TAB PO SCH (10:10)
[2024-10-23 11:49] VITALS: TEMP 98
[2024-10-23 15:29] VITALS: BP 136/60
== END 2024-10-23 18:02 | disposition home or self-care (01) ==
LOC: OBS 21:52
PROVIDERS: ADMIT Student in an Organized Health Care Education/Training Program; ATTEND Student in an Organized Health Care Education/Training Program
DX: R29.810 Facial weakness (principal); I13.0 Hypertensive heart and chronic kidney disease with heart failure and stage 1 through stage 4 chronic kidney disease, or unspecified chronic kidney disease; I50.9 Heart failure, unspecified; N18.9 Chronic kidney disease, unspecified; E11.22 Type 2 diabetes mellitus with diabetic chronic kidney disease; E78.5 Hyperlipidemia, unspecified; J44.9 Chronic obstructive pulmonary disease, unspecified; Z21 Asymptomatic human immunodeficiency virus [HIV] infection status; Z86.73 Personal history of transient ischemic attack (TIA), and cerebral infarction without residual deficits; Z79.84 Long term (current) use of oral hypoglycemic drugs; Z79.899 Other long term (current) drug therapy
CPT/HCPCS: 36415; 36416; 70551; 80053; 83036; 85025; 93880; G0378